=== PATIENT | male | born 1970 | race Caucasian/White ===

== ENCOUNTER 2017-01-05 11:15 | Emergency (ER) | payer OTHER ==
[2017-01-05] MEDS ORDERED: KETOROLAC 30 MG/ML 1 ML VIAL IVP STA (12:14)
[2017-01-05] MEDS ORDERED: SODIUM CHLORIDE 0.9% 1,000 ML IV ONE (12:14)
[2017-01-05] MEDS ORDERED: ONDANSETRON 4 MG/2 ML VIAL IVP STA (12:14)
--- NOTE | 2017-01-05 12:17 | ED ---
Abdominal Pain HPI - General Chief Complaint: Abdominal Pain Stated Complaint: Abd Pain Time Seen by Provider: 01/05/17 11:30 Source: patient, EMS, RN notes reviewed Mode of arrival: EMS Limitations: no limitations - History of Present Illness Initial Comments: Patient is a 46-year-old male presents to the emergency room for evaluation right lower quadrant pain. Patient states the pain began out of nowhere earlier this morning. Patient states he's vomiting from the pain. Patient states he called EMS. Patient states the pain did slightly subside after medications given in EMS. Patient states the pain is coming back. Patient states that he has been having the urge to urinate frequently but not much is coming out. Patient denies any pain or burning during urination or blood in the urine. Patient denies any personal history of kidney stones. Patient states he does have a family history of kidney stones. Patient denies any history of abdominal surgeries. Patient states he is nauseous but denies any current vomiting. Patient states he's having 10 out of 10 constant pain. Patient states the pain is not any worse or better with movement. - Related Data Previous Rx's Medication Instructions Recorded HYDROcodone/APAP 5-325MG [[place] 1 tab PO Q6HR PRN #12 tab 01/05/17 5-325] Ibuprofen [Motrin] 800 mg PO Q6HR PRN #20 tab 01/05/17 Ondansetron Odt [Zofran Odt] 4 mg PO Q8HR PRN #12 tab 01/05/17 Tamsulosin HCl [Flomax] 0.4 mg PO DAILY PRN #10 cap.er.24h 01/05/17 Allergies Allergy/AdvReac Type Severity Reaction Status Date / Time No Known Allergies Allergy Unverified 01/05/17 11:43 Review of Systems ROS Statement: Those systems with pertinent positive or pertinent negative responses have been documented in the HPI. ROS Other: All systems not noted in ROS Statement are negative. Past Medical History Additional Past Medical History / Comment(s): umbilical hernia History of Any Multi-Drug Resistant Organisms: None Reported Past Psychological History: No Psychological Hx Reported Smoking Status: Never smoker Past Alcohol Use History: Rare Past Drug Use History: None Reported General Exam - General Exam Comments Initial Comments: Laying in exam room, uncomfortable secondary to pain Limitations: no limitations General appearance: alert, in no apparent distress Head exam: Present: atraumatic, normocephalic, normal inspection Eye exam: Present: normal appearance ENT exam: Present: normal exam Neck exam: Present: normal inspection Respiratory exam: Present: normal lung sounds bilaterally. Absent: respiratory distress Cardiovascular Exam: Present: regular rate, normal rhythm, normal heart sounds GI/Abdominal exam: Present: soft, tenderness (RLQ), normal bowel sounds. Absent : distended, guarding, rebound, rigid Extremities exam: Present: normal inspection Back exam: Present: normal inspection, CVA tenderness (R). Absent: CVA tenderness (L) Neurological exam: Present: alert, oriented X3, CN II-XII intact, normal gait Psychiatric exam: Present: normal affect, normal mood Skin exam: Present: warm, dry, intact, normal color. Absent: rash Course Vital Signs 01/05/17 01/05/17 11:17 14:36 Temperature 97.9 F 97.5 F L Pulse Rate 63 66 Respiratory 14 18 Rate Blood Pressure 170/92 131/73 O2 Sat by Pulse 100 100 Oximetry Medical Decision Making - Medical Decision Making Patient is a 46-year-old male presents emergency room for evaluation of right lower quadrant and right flank pain. Labs show no concerning findings. Patient states that pain has subsided and he is able to urinate normally again. CT abdomen/pelvis ordered to rule out atypical appendicitis. CT abdomen/pelvis : Punctate calcifications within the dependent portion of the urinary bladder. Passage of a prior renal stone could be considered. Appendix is normal as visualized. It is possible patient passed a kidney stone. Will send patient home on medications and follow-up with urologist. Patient states he is no longer having any pain. Advised patient to return for worsening symptoms. Patient states he understands everything that was discussed with him. Case discussed with Dr. Lozano. - Lab Data Result diagrams: 01/05/17 11:20 01/05/17 11:20 Lab Results 01/05/17 01/05/17 01/05/17 Range/Units 11:20 11:20 11:43 WBC 5.6 (3.8-10.6) k/uL RBC 4.97 (4.30-5.90) m/uL Hgb 14.3 (13.0-17.5) gm/dL Hct 42.8 (39.0-53.0) % MCV 86.2 (80.0-100.0) fL MCH 28.7 (25.0-35.0) pg MCHC 33.3 (31.0-37.0) g/dL RDW 13.4 (11.5-15.5) % Plt Count 165 (150-450) k/uL Neutrophils % 58 % Lymphocytes % 34 % Monocytes % 4 % Eosinophils % 1 % Basophils % 1 % Neutrophils # 3.3 (1.3-7.7) k/uL Lymphocytes # 1.9 (1.0-4.8) k/uL Monocytes # 0.2 (0-1.0) k/uL Eosinophils # 0.0 (0-0.7) k/uL Basophils # 0.0 (0-0.2) k/uL Sodium 140 (137-145) mmol/L Potassium 3.9 (3.5-5.1) mmol/L Chloride 104 (98-107) mmol/L Carbon Dioxide 24 (22-30) mmol/L Anion Gap 12 mmol/L BUN 14 (9-20) mg/dL Creatinine 0.97 (0.66-1.25) mg/dL Est GFR (MDRD) Af Amer >60 (>60 ml/min/1.73 sqM) Est GFR (MDRD) Non-Af >60 (>60 ml/min/1.73 sqM) Glucose 130 H (74-99) mg/dL Calcium 9.1 (8.4-10.2) mg/dL Total Bilirubin 0.5 (0.2-1.3) mg/dL AST 29 (17-59) U/L ALT 40 (21-72) U/L Alkaline Phosphatase 72 (38-126) U/L Total Protein 6.7 (6.3-8.2) g/dL Albumin 4.2 (3.5-5.0) g/dL Amylase 59 (30-110) U/L Lipase 106 (23-300) U/L Urine Color Yellow Urine Appearance Clear (Clear) Urine pH 7.5 (5.0-8.0) Ur Specific [place] 1.011 (1.001-1.035) Urine Protein Negative (Negative) Urine Glucose (UA) Negative (Negative) Urine Ketones Negative (Negative) Urine Blood Negative (Negative) Urine Nitrate Negative (Negative) Urine Bilirubin Negative (Negative) Urine Urobilinogen <2.0 (<2.0) mg/dL Ur Leukocyte Esterase Negative (Negative) - Radiology Data Radiology results: report reviewed, image reviewed Disposition Clinical Impression: Abdominal pain, Flank pain Disposition: HOME SELF-CARE Condition: Good Instructions: Flank Pain (ED), Kidney Stones (ED) Additional Instructions: Take medications as needed. Drink plenty of water. Please follow up with primary care provider or urologist 24-48 hours. If any new symptom arises or symptoms worsen, return to ER as soon as possible. Prescriptions: HYDROcodone/APAP 5-325MG [[place] 5-325] 1 tab PO Q6HR PRN #12 tab PRN Reason: Pain Ibuprofen [Motrin] 800 mg PO Q6HR PRN #20 tab PRN Reason: Pain Ondansetron Odt [Zofran Odt] 4 mg PO Q8HR PRN #12 tab PRN Reason: Nausea Tamsulosin HCl [Flomax] 0.4 mg PO DAILY PRN #10 cap.er.24h PRN Reason: Pain Referrals: Kan Hernandez MD [Primary Care Provider] - 1-2 days Isrrael Garcia MD [STAFF PHYSICIAN] - 1-2 days Time of Disposition: 14:31
[2017-01-05 12:19] LABS: Basophils % (A) 1 %; CH 29.1; Eosinophils % (A) 1 %; HCT 42.8 % (39.0-53.0); HDW 2.83; HGB 14.3 gm/dL (13.0-17.5); Luc # (Auto) 0.18; Luc % (Auto) 3; Lymphocytes # (A) 1.9 k/uL (1.0-4.8); Lymphocytes % (A) 34 %; MCH 28.7 pg (25.0-35.0); MCHC 33.3 g/dL (31.0-37.0); MCV 86.2 fL (80.0-100.0); Monocytes # (A) 0.2 k/uL (0-1.0); Monocytes % (A) 4 %; Neutrophils # (A) 3.3 k/uL (1.3-7.7); Neutrophils % (A) 58 %; RBC 4.97 m/uL (4.30-5.90); RDW 13.4 % (11.5-15.5); WBC 5.6 k/uL (3.8-10.6); WBC (Perox) 5.75
[2017-01-05 12:27] LABS: ALT 40 U/L (21-72); AST 29 U/L (17-59); Alkaline Phosphatase 72 U/L (38-126); Amylase 59 U/L (30-110); Anion Gap 12 mmol/L; Blood Urea Nitrogen 14 mg/dL (9-20); Calcium 9.1 mg/dL (8.4-10.2); Carbon Dioxide 24 mmol/L (22-30); Chloride 104 mmol/L (98-107); Glucose 130 mg/dL (74-99); Non-African American GFR(MDRD) >60 (>60 ml/min/1.73 sqM); Potassium 3.9 mmol/L (3.5-5.1); Sodium 140 mmol/L (137-145); Total Bilirubin 0.5 mg/dL (0.2-1.3); Total Protein 6.7 g/dL (6.3-8.2)
[2017-01-05 12:34] LABS: Appearance,Urine Clear (Clear); Bilirubin,Urine Negative (Negative); Glucose,Urine (UA) Negative (Negative); Ketones,Urine Negative (Negative); Leukocyte Esterase,Urine Negative (Negative); Nitrite,Urine Negative (Negative); PH, Urine 7.5 (5.0-8.0); Protein,Urine Negative (Negative); Specific Gravity,Urine 1.011 (1.001-1.035); UA Billing (MACRO vs. MICRO) CHEM; Urobilinogen,Urine <2.0 mg/dL (<2.0)
--- NOTE | 2017-01-05 12:45 | XR ---
EXAMINATION TYPE: XR KUB DATE OF EXAM: 01/05/2017 12:41 PM COMPARISON: NONE INDICATION: Pain right lower quadrant TECHNIQUE: Single view abdomen upright view FINDINGS: There is a normal bowel gas pattern. Psoas margins are normal. No organomegaly is present. No free air is evident. No suspicious air-fluid levels or differential air-fluid levels are present. Normal colonic bowel gas is present with minimal fecal retention. IMPRESSION: 1. Essentially unremarkable abdomen. There is minimal fecal retention.
[2017-01-05] MEDS ORDERED: RX INFO: IV CONTRAST WAS GIVEN 1 EACH MISC MISCELLANE PRN (13:25)
--- NOTE | 2017-01-05 14:25 | CT ---
EXAMINATION TYPE: CT abdomen pelvis w con DATE OF EXAM: 01/05/2017 2:07 PM COMPARISON: NONE INDICATION: RLQ pain DLP: 1602.9 mGycm, Automated exposure control for dose reduction was used. CONTRAST: 100 mL of Omnipaque 300. Study performed without Oral Contrast TECHNIQUE: Axial images were obtained from above the diaphragm to the pubic rami in the axial plane a t 5 mm thick sections. Reconstructed images are reviewed on the computer in the coronal plane. FINDINGS: Limited CT sections are obtained the lung bases. The lung bases are clear. CT ABDOMEN: Mesenteric fat containing hernia in the periumbilical region has an opening into the abdo bentley wall of 1.4 cm. Liver: There is a subtle ill-defined hypodensity measuring 0.8 cm and 45 Hounsfield units in the supe rior posterior right lobe liver. Series 3 image 23 Additional 0.6 cm subtle areas within the inferior right lobe liver. Series 3 image 30. Findings are nonspecific. Hemangioma could be considered. No en hancement is evident. Nonspecific cysts could be considered. Spleen: Splenule anterior to the medial spleen. Pancreas: Normal Adrenal glands: The adrenal glands are normal. Gallbladder: Normal Kidneys: No masses are evident. No hydronephrosis is present. Cortical renal cysts on the medial up per left kidney measuring 1.5-1.7 cm in size at approximately 0 Hounsfield units each. A 1.5 cm poste rior lateral upper pole right renal cyst measures 2 Hounsfield units. 1.6 cm cyst on the medial infe rior right renal pole measures 10 Hounsfield units. Couple of punctate subcortical cysts are within t he inferior pole left kidney. Delayed images were obtained through the kidneys, which remain unremark able. Aorta: Normal Inferior vena cava: Normal. CT PELVIS: Some fluid is along the proximal right psoas muscle. Loops of bowel within the abdomen and pelvis are normal. There are loops of bowel which are incom pletely distended or lack oral contrast limiting their evaluation. Appendix: Normal as visualized. Urinary bladder: Punctate calcifications within the dependent portion of the urinary bladder. Passage of a prior renal stone could be considered. Genitourinary structures: Prostate is prominent Osseous structures: No suspicious lytic or sclerotic lesions. IMPRESSIONS: 1. Fluid along the anterior margin of the right proximal psoas muscle. 2. Multiple small renal cysts. 3. Nonspecific hypodensities within the liver could represent cysts too small to classify. Other etio logies are not excluded.
[2017-01-05 14:37] VITALS: BP 131/73; PULSE 66; RESP 18; TEMP 97.5
== END 2017-01-05 14:52 | disposition home or self-care (01) ==
LOC: EC 11:15
DX: N20.0 Calculus of kidney (principal); R11.0 Nausea; Z87.19 Personal history of other diseases of the digestive system
CPT/HCPCS: 36415; 80053; 82150; 83690; 85025; 81003; 74000; 74177; 99285; 96374; 96375; 96361; J2405; J1885; Q9967

== ENCOUNTER → 2018-08-03 | Outpatient (CLI) | payer BC ==
--- NOTE | 2018-08-03 18:59 | US ---
EXAMINATION TYPE: US renals and bladder DATE OF EXAM: 08/03/2018 COMPARISON: NONE CLINICAL HISTORY: R10.30 Lower Abd Pain,R35.0 Urinary Frequency. Urinary burning per patient x severa l days. EXAM MEASUREMENTS: Right Kidney: 12.7 x 6.8 x 5.3 cm Left Kidney: 12.4 x 5.8 x 5.8 cm Post Void Residual Volume: 22.6 mL Right Kidney: superior lateral cortical nonsimple cyst =1.8 x 1.5 x 1.8cm Left Kidney: No hydronephrosis or masses seen Bladder: wnl Bilateral Jets seen: small ureteral jets were seen Normal Post Void Residual: yes There is no evidence for hydronephrosis at this point in time. No nephrolithiasis is seen. The urin osvaldo bladder is anechoic. Bilateral ureteral jets are seen. IMPRESSION: Thin-walled simple cortical cyst lateral right kidney. This is not changed in size compar ed to CT scan of 01/05/2017. No renal obstruction. Satisfactory bladder emptying.
[2018-08-03 19:10] LABS: Appearance,Urine Clear (Clear); Bilirubin,Urine Negative (Negative); Blood,Urine Negative (Negative); Color,Urine Light Yellow; Glucose,Urine (UA) Negative (Negative); Ketones,Urine Negative (Negative); Leukocyte Esterase,Urine Negative (Negative); Nitrite,Urine Negative (Negative); Protein,Urine Negative (Negative); Specific Gravity,Urine 1.005 (1.001-1.035); Urobilinogen,Urine <2.0 mg/dL (<2.0)
[2018-08-03 19:12] LABS: Basophils % (A) 0 %; Eosinophils # (A) 0.1 k/uL (0-0.7); Eosinophils % (A) 1 %; HCT 39.9 % (39.0-53.0); HGB 13.4 gm/dL (13.0-17.5); Lymphocytes # (A) 1.9 k/uL (1.0-4.8); Lymphocytes % (A) 23 %; MCHC 33.5 g/dL (31.0-37.0); MCV 83.8 fL (80.0-100.0); Mean Platelet Volume 7.5; Monocytes # (A) 0.3 k/uL (0-1.0); Monocytes % (A) 4 %; Neutrophils # (A) 5.6 k/uL (1.3-7.7); Neutrophils % (A) 70 %; Platelet Count 179 k/uL (150-450); RBC 4.76 m/uL (4.30-5.90); RDW 13.6 % (11.5-15.5)
[2018-08-03 19:23] LABS: ALT 32 U/L (21-72); AST 28 U/L (17-59); Albumin 3.9 g/dL (3.5-5.0); Alkaline Phosphatase 78 U/L (38-126); Anion Gap 7 mmol/L; Blood Urea Nitrogen 10 mg/dL (9-20); Calcium 9.3 mg/dL (8.4-10.2); Carbon Dioxide 29 mmol/L (22-30); Chloride 104 mmol/L (98-107); Glucose 100 mg/dL (74-99); Potassium 4.4 mmol/L (3.5-5.1); Sodium 140 mmol/L (137-145); Total Bilirubin 0.6 mg/dL (0.2-1.3); Total Protein 6.7 g/dL (6.3-8.2)
[2018-08-03 19:53] LABS: Prostate Specific Antigen 4.98 ng/mL (0.00-4.00)
== END ==
LOC: RADUSMAIN 16:48
PROVIDERS: ATTEND Internal Medicine
DX: N28.1 Cyst of kidney, acquired (principal); R10.30 Lower abdominal pain, unspecified; R35.0 Frequency of micturition
CPT/HCPCS: 76770; 80053; 81003; 84153; 85025

== ENCOUNTER → 2019-08-25 | Outpatient (CLI) | payer BC ==
--- NOTE | 2019-08-28 12:16 | MR ---
EXAMINATION TYPE: MR Prostate wo/w con DATE OF EXAM: 08/25/2019 COMPARISON: CT abdomen and pelvis January 05, 2017. INDICATION: Malignant neoplasm prostate, restaging PSA: 6.4 ng/ml on July 28, 2019 Recent Biopsy and Date: October 11, 2018 Pathology Report (If Applicable): Right apex medial [place] score 3+3 = 6 8% size 1.2 mm TECHNIQUE: Examination was performed using a 3T MRI without an endorectal coil. Multiparametric imaging was perf ormed with T2 mutliplanar sequences, axial diffusion weighted imaging and dynamic contrast enhanced i maging, utilizing 11 mL intravenous Gadavist gadolinium contrast. FINDINGS: PROSTATE VOLUME: 4.5 cm SI x 3.1 cm AP x 4.5 cm LR Vol= 32.88 cc PSA DENSITY: 3.95 ng/ml/cc Peripheral zone is thinned with some indistinct areas of hypointensity identified on ADC mapping, no areas of increased signal on diffusion-weighted images present. Central transitional zone shows overall heterogeneity without distinct or indistinct hypointense nodu les or areas identified on the T2-weighted images. Prostatic capsule is maintained. No adjacent adenopathy. Seminal vesicles are symmetric and felt with in normal limits. Bladder is wall shows mild trabeculation and thickening up to 8 mm anteriorly axial image 26. Visualized osseous structures are intact. No concerning pelvic fluid collection. IMPRESSION: A focus of clinically significant cancer is not identified. Highest Assessment Category: 2 MRI Stage: T1c N0 M 0 based on review of pelvic images. False negative rates for MRI range from 5-20% depending on risk profile. Assessment Categories: 1 ? Very low (clinically significant cancer is highly unlikely to be present) 2 ? Low (clinically significant cancer is unlikely to be present)
== END | disposition home or self-care (01) ==
LOC: RADMRIMAIN 06:52
PROVIDERS: ATTEND Urology
DX: C61 Malignant neoplasm of prostate (principal)
CPT/HCPCS: 72197; A9585